=== PATIENT | female | born 1950 | race Caucasian/White ===

== ENCOUNTER 2018-04-16 12:42 | Emergency (ER) | payer OTHER ==
[2018-04-16] MEDS: KETOROLAC 15 MG INJ IM (15:04)
== END 2018-04-16 18:00 | disposition home or self-care (01) ==
LOC: FTE 12:42
DX: M54.42 Lumbago with sciatica, left side (principal); I10 Essential (primary) hypertension; E11.9 Type 2 diabetes mellitus without complications; Z79.82 Long term (current) use of aspirin; Z79.84 Long term (current) use of oral hypoglycemic drugs
CPT/HCPCS: 96372; 99284-25; J1885